=== PATIENT | male | born 1995 | race Caucasian/White ===

== ENCOUNTER 2017-10-27 02:39 | Emergency (ER) | payer MEDICAID, OTHER, SELFPAY ==
[~2017-10-27] VITALS: Ht 185.4 cm; Wt 123.9 kg
[2017-10-27 02:46] VITALS: BP 134/87
== END 2017-10-27 04:12 | disposition home or self-care (01) ==
LOC: ED 04:01
DX: M79.641 Pain in right hand (principal); G89.11 Acute pain due to trauma
CPT/HCPCS: 99284